=== PATIENT | female | born 1945 | race Two or more races ===

== ENCOUNTER 2018-07-20 12:53 | Emergency (ER) | payer BC ==
[2018-07-20] MEDS ORDERED: KETOROLAC 30 MG/ML VIAL IVP ONE (13:29)
[2018-07-20] MEDS ORDERED: 0.9 % SODIUM CHLORIDE 1000ML 1,000 ML IV PRN (13:29)
[2018-07-20 13:32] LABS: URINE APPEARANCE CLEAR; URINE BILIRUBIN NEGATIVE (NEGATIVE); URINE BLOOD SMALL (NEGATIVE); URINE COLOR YELLOW; URINE KETONE NEGATIVE (NEGATIVE); URINE LEUKOCYTE ESTERASE MODERATE (NEGATIVE); URINE NITRITE NEGATIVE (NEGATIVE); URINE PROTEIN NEGATIVE (NEGATIVE); URINE UROBILINOGEN 0.2 E.U./dL (0.20 - 1.00)
--- NOTE | 2018-07-20 13:35 | Emergency Department Record ---
History of Present Illness - General Chief Complaint: Back Pain/Injury Stated Complaint: BACK PAIN Time Seen by Provider: 07/20/18 13:24 Source: Patient, RN notes reviewed - History of Present Illness Initial Comments: left flank and back pain and history of a kidney stone on the left side prior. Also PSH hysterectomy , and some in her side to help her urinating. Onset/Timin -: Days(s) Similar Symptoms Previously: No Place: Home Severity: Moderate Severity scale (1-10): 9 Consistency: Constant Improves With: None Worsens With: None Context: Other Associated Symptoms: Denies other symptoms Treatments Prior to Arrival: Prescription analgesics Treatment Prior to Arrival Comment:: Naproxen - Related Data Home Medications Medication Instructions Recorded Confirmed Last Taken Amitriptyline HCl [Elavil] 25 mg PO DAILY 07/20/18 07/20/18 07/19/18 Naproxen Sodium [Naproxen Cr] 500 mg PO ASDIR 07/20/18 07/20/18 07/20/18 08:30 Pioglitazone HCl 30 mg PO DAILY 07/20/18 07/20/18 07/20/18 Previous Rx's Medication Instructions Recorded Ciprofloxacin HCl [Cipro] 500 mg PO Q12HR #20 tablet 07/20/18 Naproxen [Naprosyn] 500 mg PO BID #30 tablet 07/20/18 Allergies Allergy/AdvReac Type Severity Reaction Status Date / Time Sulfa (Sulfonamide Allergy RASH Verified 07/20/18 13:05 Antibiotics) Travel Screening - Travel/Exposure Within Last 30 Days Have you traveled within the last 30 days?: No - Travel/Exposure Within Last Year Have you traveled outside the [place] in the last year?: No - Additonal Travel Details Have you been exposed to anyone with a communicable illness?: No - Travel Symptoms Symptom Screening: None Review of Systems Reviewed: No additional complaints except as noted below Constitutional: Reports: As per HPI. Denies: Chills, Fever, Malaise, Night sweats, Weakness, Weight change Eyes: Reports: As per HPI. Denies: Eye discharge, Eye pain, Photophobia, Vision change ENT: Reports: As per HPI. Denies: Congestion, Dental pain, Ear pain, Epistaxis , Hearing loss, Throat pain Respiratory: Reports: As per HPI. Denies: Cough, Dyspnea, Hemoptysis, Stridor, Wheezes Cardiovascular: Reports: As per HPI. Denies: Arrhythmia, Chest pain, Dyspnea on exertion, Edema, Murmurs, Orthopnea, Palpitations, Paroxysmal nocturnal dyspnea, Rheumatic Fever, Syncope Endocrine: Reports: As per HPI. Denies: Fatigue, Heat or cold intolerance, Polydipsia, Polyuria Gastrointestinal: Reports: As per HPI. Denies: Abdominal pain, Constipation, Diarrhea, Hematemesis, Hematochezia, Melena, Nausea, Vomiting Genitourinary: Reports: As per HPI. Denies: Abnormal menses, Discharge, Dyspareunia, Dysuria, Frequency, Hematuria, Incontinence, Retention, Urgency Musculoskeletal: Reports: As per HPI. Denies: Arthralgia, Back pain, Gout, Joint swelling, Myalgia, Neck pain Skin: Reports: As per HPI. Denies: Bruising, Change in color, Change in hair/ nails, Lesions, Pruritus, Rash Neurological: Reports: As per HPI. Denies: Abnormal gait, Confusion, Headache, Numbness, Paresthesias, Seizure, Tingling, Tremors, Vertigo, Weakness Psychiatric: Reports: As per HPI. Denies: Anxiety, Auditory hallucinations, Depression, Homicidal thoughts, Suicidal thoughts, Visual hallucinations Hematological/Lymphatic: Reports: As per HPI. Denies: Anemia, Blood Clots, Easy bleeding, Easy bruising, Swollen glands Past Medical History - SOCIAL HISTORY Smoking Status: Current every day smoker Alcohol Use: Occasional Drug Use: None - RESPIRATORY Hx Respiratory Disorders: No - CARDIOVASCULAR Hx Cardio Disorders: Yes Hx Hypertension: Yes - NEURO Hx Neuro Disorders: Yes Hx Dizziness: Yes - GI Hx GI Disorders: No Hx Reflux: Yes - Hx Genitourinary Disorders: No - ENDOCRINE Hx Endocrine Disorders: Yes Hx Diabetes: Yes - MUSCULOSKELETAL Hx Musculoskeletal Disorders: Yes Hx Arthritis: Yes - PSYCH Hx Psych Problems: No - HEMATOLOGY/ONCOLOGY Hx Hematology/Oncology Disorders: No Family Medical History Any Significant Family History?: Yes Hx Cancer: Brother/Sister Hx Heart Disease: Mother Physical Exam - General General Appearance: Alert, Oriented x3, Cooperative, No acute distress - Head Head exam: Normal inspection - Eye Eye exam: Normal appearance, PERRL Pupils: Normal accommodation - ENT ENT exam: Normal exam, Mucous membranes moist, Normal external ear exam, Normal orophraynx, TM's normal bilaterally Ear exam: Normal external inspection. negative: External canal tenderness Nasal Exam: Normal inspection. negative: Discharge, Sinus tenderness Mouth exam: Normal external inspection, Tongue normal Teeth exam: Normal inspection. negative: Dental caries Throat exam: Normal inspection. negative: Tonsillar erythema, Tonsillar exudate - Neck Neck exam: Normal inspection, Full ROM. negative: Tenderness - Respiratory Respiratory exam: Normal lung sounds bilaterally. negative: Respiratory distress - Cardiovascular Cardiovascular Exam: Regular rate, Normal rhythm, Normal heart sounds - GI/Abdominal GI/Abdominal exam: Soft, Normal bowel sounds. negative: Tenderness - Rectal Rectal exam: Deferred - exam: Deferred - Extremities Extremities exam: Normal inspection, Full ROM, Normal capillary refill. negative: Tenderness - Back Back exam: Reports: Normal inspection, Full ROM, Tenderness (left flank pain and slight worse with palpation). Denies: Muscle spasm, Rash noted - Neurological Neurological exam: Alert, Normal gait, Oriented X3, Reflexes normal - Psychiatric Psychiatric exam: Normal affect, Normal mood - Skin Skin exam: Dry, Intact, Normal color, Warm Course Vital Signs 07/20/18 13:09 Temperature 97.8 F Pulse Rate 65 Respiratory 18 Rate Blood Pressure 126/69 Pulse Ox 99 Medical Decision Making - Data Complexity MDM Data: Labs Ordered and/or Reviewed (UA with WBC's and RBC's), X-Ray Ordered and/or Reviewed (CT neg with cyst in the kidney and liver and needs follow up.) - Lab Data Result diagrams: 07/20/18 13:40 07/20/18 13:40 Disposition Clinical Impression: UTI (urinary tract infection) Qualifiers: Urinary tract infection type: acute cystitis Hematuria presence: without hematuria Qualified Code(s): N30.00 - Acute cystitis without hematuria Lumbar strain Qualifiers: Encounter type: initial encounter Qualified Code(s): S39.012A - Strain of muscle, fascia and tendon of lower back, initial encounter Disposition: Home, Self-Care Condition: (1) Good Instructions: Urinary Tract Infection in Women (ED) Additional Instructions: fluids follow up with family in one week Prescriptions: Ciprofloxacin HCl [Cipro] 500 mg PO Q12HR #20 tablet Naproxen [Naprosyn] 500 mg PO BID #30 tablet Forms: Patient Portal Access Time of Disposition: 14:37 Quality - Quality Measures Quality Measures: N/A - Blood Pressure Screening Does Patient Have Any of the Following: No, Active Dx of HTN Blood Pressure Classification: Pre-Hypertensive BP Reading Systolic Measurement: 126 Diastolic Measurement: 69 Screening for High Blood Pressure: Patient Exclusion, Hx of HTN [[id number]]
[2018-07-20 13:42] LABS: URINE WBC 16 - 20 (0-2/hpf)
[2018-07-20 13:43] LABS: URINE EPITHELIAL CELLS 0 - 2 (FEW)
[2018-07-20 13:48] LABS: BASO % 0.5 % (0-6); EOS % 1.8 % (0-6); GRAN % 51.1 % (47-80); HEMATOCRIT 35.6 % (35.0-47.0); HEMOGLOBIN 11.1 gm/dl (11.6-16.0); LYMPH % 36.3 % (16-45); MEAN CELL VOLUME 101.1 fl (81-97); MEAN CORPUSCULAR HEMOGLOBIN 31.5 pg (27-33); MEAN CORPUSCULAR HGB CONC 31.2 g/dl (32-36); MEAN PLATELET VOLUME 10.2 fl (7.4-10.4); MONO % 10.3 % (0-9); PLATELET COUNT 199 K/uL (130-400); RED BLOOD COUNT 3.52 M/uL (3.80-5.40); RED CELL DISTRIBUTION WIDTH 14.6 % (11.5-14.5); WHITE BLOOD COUNT W/O DIFF 3.9 K/uL (4.2-12.2)
[2018-07-20 13:58] LABS: BLOOD UREA NITROGEN 28 mg/dL (8-23); CREATININE 0.7 mg/dL (0.5-0.9); EST GLOMERULAR FILTRATION RATE > 60 mL/min
[2018-07-20 13:59] LABS: TOTAL PROTEIN 7.4 g/dL (6.6-8.7)
[2018-07-20 14:01] LABS: GLUCOSE,RANDOM 159 mg/dL (74-109)
[2018-07-20 14:03] LABS: ALBUMIN 4.4 g/dL (4.0-5.0); ALT/SGPT 13 U/L (<33); AST/SGOT 22 U/L (10.0-35.0)
[2018-07-20 14:04] LABS: ALKALINE PHOSPHATASE 46 U/L (35-104); LIPASE 51 U/L (13-60)
[2018-07-20 14:06] LABS: BILIRUBIN,DIRECT < 0.2 mg/dL (0-0.3)
[2018-07-20] MEDS ORDERED: NAPROXEN 250 MG TABLET PO ONE (15:07)
[2018-07-20] MEDS ORDERED: CIPROFLOXACIN HCL 500 MG TABLET PO ONE (15:10)
--- NOTE | 2018-07-22 12:46 | CT SCAN REPORT ---
EXAM: EMERGENCY CT OF THE ABDOMEN AND PELVIS WITHOUT CONTRAST HISTORY: LEFT FLANK PAIN FOR TWO DAYS. HYSTERECTOMY. TECHNIQUE: Axial CT scan of the abdomen and pelvis was performed without oral or IV contrast. Comparison: None. FINDINGS: No calcified gallstones are seen within the gallbladder. There is a single tiny calcification in the upper pole of the left kidney consistent with a tiny currently nonobstructing intrarenal calculus on the left. None definitely seen on the right. There is no hydronephrosis or hydroureter on either side with no definite ureteral calculus seen on either side and no bladder calculus evident. Evaluation of the bowel and viscera is very limited without oral or IV contrast. There does appear to be a low attenuation mass posteriorly in the mid portion of the right kidney measuring about 2 cm in size. This has a noncontrast CT density of 19, nonspecific. This is probably just a right renal cyst, but is incompletely evaluated on this noncontrast study. In addition, there appears to be a slightly larger, approximately 3.7 cm mass along the posterior aspect of the right lobe of the liver which has a noncontrast CT density of 35. This is above the typical range of a simple cyst. This is nonspecific although could just be an hepatic hemangioma. Follow-up MRI of the abdomen if not contraindicated would be suggested for further evaluation of the renal and hepatic mass. Note is made that the patient has an apparent sacral spinal stimulator in place and correlation with the make and model of this to see if this is MRI compatible will be necessary before MRI is performed. Given the limitations with lack of contrast, no other hepatic mass identified and no other right renal mass seen. No definite splenic, adrenal, pancreatic, or left renal mass identified. The uterus is not identified consistent with the surgical history. The appendix is visualized and appears of normal caliber with no appendicitis evident. There is probably some dependent atelectasis in both lung bases along with slight bibasilar bronchiectasis extending into the posterior costophrenic angles medially. No free intraperitoneal air or free intraperitoneal fluid evident. Some spurring in the thoracic spine with a prominent spur posteriorly at the T11-T12 interspace which may be impinging on the anterior aspect of the thecal sac at this level. Metallic battery pack in the subcutaneous tissues of the left upper buttock region with the associated wire extending through the left side of the sacrum. IMPRESSION: 1. SINGLE SMALL NONOBSTRUCTING CALCULUS UPPER POLE LEFT KIDNEY. NO DEFINITE HYDRONEPHROSIS OR URETERAL CALCULUS SEEN. 2. POSTOP HYSTERECTOMY. 3. APPARENT SACRAL SPINE STIMULATOR IN PLACE WITH THE ASSOCIATED WIRE EXTENDING THROUGH THE LEFT SIDE OF THE SACRUM. 4. INDETERMINATE APPROXIMATELY 3.7 CM HEPATIC MASS POSTERIORLY IN THE RIGHT LOBE AND AN INDETERMINATE 2.1 CM MASS POSTERIORLY IN THE MID PORTION OF THE RIGHT KIDNEY. THIS MAY JUST REPRESENT A RIGHT RENAL CYST AND HEPATIC HEMANGIOMA , BUT FURTHER EVALUATION DESCRIBED ABOVE SUGGESTED. 5. MODERATELY PROMINENT POSTERIOR SPUR AT THE T11-T12 INTERSPACE. JOB NUMBER: [id number] MTDD
== END 2018-07-20 15:26 | disposition home or self-care (01) ==
LOC: ER 12:53
DX: S39.012A Strain of muscle, fascia and tendon of lower back, initial encounter (principal); N30.00 Acute cystitis without hematuria; X50.1XXA Overexertion from prolonged static or awkward postures, initial encounter; X50.0XXA Overexertion from strenuous movement or load, initial encounter; Z87.442 Personal history of urinary calculi; Y92.009 Unspecified place in unspecified non-institutional (private) residence as the place of occurrence of the external cause; E11.9 Type 2 diabetes mellitus without complications; I10 Essential (primary) hypertension; Z90.710 Acquired absence of both cervix and uterus; Z79.84 Long term (current) use of oral hypoglycemic drugs; F17.210 Nicotine dependence, cigarettes, uncomplicated
CPT/HCPCS: 74176; 80048; 80076; 81001; 83690; 85025; 96374; 99284; J1885